=== PATIENT | male | born 1975 | race African-American/Black ===

== ENCOUNTER 2019-03-18 18:21 | Inpatient (IN) ==
[2019-03-18 18:49] LABS: BASO# 0.01 X1000 (0.0-0.2); BASO% 0.2 % (0.0-0.8); HEMATOCRIT 49.8 % (42.0-52.0); LYMPH# 1.01 X1000 (1.2-3.4); LYMPH% 16.3 % (20.5-51.1); MCH 34.1 PG (27-31); MCHC 34.1 g/dL (33-37); MONO# 0.49 X1000 (0.11-0.59); MONO% 7.9 % (1.7-9.3); NEUT# 4.68 X1000 (1.4-6.5); NEUT% 75.6 % (42.2-75.2); PLT 180 X1000 (130-400); RBC 4.98 XMIL (4.7-6.1); RDW 11.9 % (11.5-14.5); WBC 6.19 X1000 (4.8-10.8)
[2019-03-18 18:53] LABS: URINE SOURCE CLEAN CATCH
[2019-03-18 18:57] LABS: UR EPITHELIAL CELLS <10 /HPF (<10); URINE BACTERIA NEGATIVE /HPF; URINE RBC <10 /HPF (<10); URINE WBC <10 /HPF (<10)
[2019-03-18 18:58] LABS: BILIRUBIN URINE NEGATIVE (NEGATIVE); BLOOD URINE TRACE (NEGATIVE); COLOR YELLOW; GLUCOSE URINE NEGATIVE (NEGATIVE); KETONE URINE 80 mg/dL (NEGATIVE); LEUKOCYTES URINE NEGATIVE (NEGATIVE); NITRITE URINE NEGATIVE (NEGATIVE); PH URINE 7.5; PROTEIN URINE 600 mg/dL (NEGATIVE); SP GRAVITY URINE 1.022; TURBIDITY URINE CLEAR (CLEAR); UROBILINOGEN URINE 8 mg/dL (NORMAL)
[2019-03-18 19:10] LABS: AGAP 15; ALB/GLOB RATIO 1.5; ALBUMIN 4.5 g/dL (3.5-5.0); ALKALINE PHOSPHATASE 96 U/L (32-122); BUN 6 mg/dL (8-22); CALCIUM 9.9 mg/dL (8.8-10.2); CHLORIDE 94 mmol/L (98-107); COSMO 271; CREATININE 0.9 mg/dL (0.7-1.2); ESTIMATED GFR > 60; GLUCOSE 118 mg/dL (70-104); GOT 47 U/L (10-34); GPT 47 U/L (10-44); LIPASE 561 U/L (13-60); POTASSIUM 4.1 mmol/L (3.5-5.1); SODIUM 136 mmol/L (136-145); TCO2 27 mmol/L (25-35); TOTAL BILIRUBIN 1.64 mg/dL (0.20-1.00); TOTAL PROTEIN 7.5 g/dL (6.3-8.3)
--- NOTE | 2019-03-18 21:08 | PROVIDER DOCUMENTATION ---
HPI-General Adult - General Chief Complaint: Abdominal Pain Stated Complaint: ABDOMINAL PAIN, NAUSEA, HIGH BP Time Seen by Provider: 03/18/19 20:53 Source: patient Allergies/Adverse Reactions: Patient Allergies Allergy/AdvReac Type Severity Reaction Status Date / Time shellfish derived AdvReac Unknown Verified 03/18/19 21:50 Home Medications: Home Medication List Medication Instructions Recorded Confirmed Last Taken Type NK [No Home Medications] 03/18/19 03/18/19 Unknown History - History of Present Illness -Gen Adult Nature of Presenting Problems: 43yo male presents with CC of abdominal pain. The patient reports that the onset was this morning. The pain is sharp and stabbing and radiates to the back. The patient has had vomiting and reports fever and chills. The patient reports decreased PO intake. The patient reports only occasional alcohol use and no hx of gallbladder disease. Location of Pain/Injury: reports: abdomen Pain Radiation: reports: back Quality of Pain: reports: sharp, stabbing Severity: reports: moderate Onset/Duration: reports: this morning Timing: reports: still present Context/Activities at Onset: reports: none Associated Symptoms: reports: back/neck pain, constipation, fever/chills, vomiting. denies: genitourinary problems, shortness of breath Review of Systems - Adult - REVIEW OF SYSTEMS - ADULT Constitutional: reports: chills, fever Eyes: reports: no symptoms reported. denies: eye pain Ears, Nose, Mouth & Throat: reports: no symptoms reported. denies: throat pain Cardiovascular: reports: no symptoms reported. denies: chest pain Respiratory: reports: no symptoms reported, shortness of breath Gastrointestinal: reports: abdominal pain, vomiting Genitourinary: reports: no symptoms reported. denies: dysuria Musculoskeletal: reports: back pain Integumentary: reports: no symptoms reported Neurological: reports: no symptoms reported. denies: headache/migraines Psychiatric: reports: no symptoms reported. denies: alcohol/drug dependence Endocrine: reports: no symptoms reported Hematologic/Lymphatic: reports: no symptoms reported, other (no bleeding) Allergic/Immunologic: reports: no symptoms reported Past History - Adult - PAST MEDICAL HISTORY-ADULT Review of Records: reports: Old Records Reviewed Major Childhood Illnesses: reports: denies history Cardiovascular: reports: HTN Respiratory: reports: denies history Gastrointestinal: reports: denies history Genitourinary: reports: STD (male) (previous GC) Musculoskeletal: reports: denies history Neurological: reports: denies history Psychiatric: reports: denies history Endocrine/Immune: reports: denies history - PRIOR SURGERIES/PROCEDURES Surgical/Procedure History: reports: appendectomy - IMMUNIZATION STATUS Childhood Immunizations: See Nurse Assessment Flu Vaccine: See Nurse Assessment - FAMILY HISTORY Family History: reviewed, not pertinent Physical Exam-General - CONSTITUTIONAL General Appearance: appears well, alert, no apparent distress - EYES Eyes: negative: conjuctival exudate, photophobia, scleral icterus - HEAD, EARS, NOSE, MOUTH & THROAT HENMT: normocephalic/atraumatic, moist mucous membranes, pharynx normal. negative: hearing deficit, pharyngeal erythema - RESPIRATORY Respiratory: no respiratory distress - CARDIOVASCULAR Cardiovascular: no edema - GASTROINTESTINAL (ABDOMEN) Abdominal Exam: soft, tenderness (epigastric tenderness). negative: guarding, rigid - MUSCULOSKELETAL Back Exam: CVA tenderness (Left mild) Extremity: non-tender, normal inspection - SKIN Integumentary: normal color, warm/dry - NEUROLOGIC Neurologic: grossly normal - PSYCHIATRIC Psych/Mental Status: normal mood/affect, normal thought content, normal thought process Progress - PLAN OF CARE/RESULTS Progress/Plan/Lab Results: Vital Signs - 8 hr 03/18/19 18:30 Temperature 98.7 F Pulse Rate 64 Respiratory Rate 19 Blood Pressure 203/120 O2 Sat by Pulse Oximetry 100 Laboratory Results - last 24 hr 03/18/19 03/18/19 03/18/19 18:37 18:37 18:39 WBC 6.19 RBC 4.98 Hgb 17.0 Hct 49.8 MCV 100.0 H MCH 34.1 H MCHC 34.1 RDW Std Deviation 11.9 Plt Count 180 MPV 10.0 Immature Gran % (Auto) 0.0 Neut % (Auto) 75.6 H Lymph % (Auto) 16.3 L [place] % (Auto) 7.9 Eos % (Auto) 0.0 Baso % (Auto) 0.2 Immature Gran # (Auto) 0.00 Neut # (Auto) 4.68 Lymph # (Auto) 1.01 L [place] # (Auto) 0.49 Eos # (Auto) 0.00 Baso # (Auto) 0.01 Sodium 136 Potassium 4.1 Chloride 94 L Carbon Dioxide 27 Anion Gap 15 BUN 6 L Creatinine 0.9 Estimated GFR/1.73 m2 > 60 BUN/Creatinine Ratio 7 Glucose 118 H Calculated Osmolality 271 Calcium 9.9 Total Bilirubin 1.64 H AST 47 H ALT 47 H Alkaline Phosphatase 96 Total Protein 7.5 Albumin 4.5 Globulin 3.0 Albumin/Globulin Ratio 1.5 Lipase 561 H Urine Source CLEAN CATCH Urine Color YELLOW Urine Turbidity CLEAR Urine pH 7.5 Ur Specific [place] 1.022 Urine Protein 600 A Ur Glucose (Stick) NEGATIVE Ur Ketones (Stick) 80 A Urine Blood TRACE A Urine Nitrite NEGATIVE Urine Bilirubin NEGATIVE Urobilinogen Dipstick 8 A Urine Leukocytes NEGATIVE Urine WBC (Auto) <10 Urine RBC (Auto) <10 U Epithel Cells (Auto) <10 Urine Bacteria (Auto) NEGATIVE Orders Category Date Time Status NPO Diet 03/18/19 18:[address] ABD/PELVIS W/IV CONT ONLY [CT] Stat Exams 03/18/19 21:06 Ordered CBC WITH DIFF [HEME] Stat Lab 03/18/19 18:37 Completed COMPREHENSIVE METABOLIC PANEL [CHEM] Stat Lab 03/18/19 18:37 Completed LIPASE [CHEM] Stat Lab 03/18/19 18:37 Completed URINALYSIS [URINALYSIS] Stat Lab 03/18/19 18:39 Completed Abd Pain/OB <20 weeks Stat Oth 03/18/19 18:32 Ordered Result Diagrams: 03/18/19 18:37 03/18/19 18:37 - REASSESSMENT Reassessment #1 Status: improving (Acute pancreatitis noted on CT scan. Discussed with patient who is willing to admitted. Discussed with the hospitalist who has accepted the patient.) Departure - Departure Date of Disposition Decision: 03/19/19 Time of Disposition Decision: 00:55 DIAGNOSIS: Acute pancreatitis Qualifiers: Pancreatitis type: other Acute pancreatitis complication: no infection or necrosis Qualified Code(s): K85.80 - Other acute pancreatitis without necrosis or infection Disposition: ADMITTED INPATIENT 09 Certified Medical Emergency: Emergent Condition: Fair Referrals and Follow-Ups: Elier Bah MD [Primary Care Provider] - - Critical Care Note This patient required my direct & personal management of CC.: No Attestation - Physician/ IBAN Attestation Patient care was provided by Advanced Practice Provider:: No The physician spent face to face time with patient:: Yes Advanced Practice Provider documentation review:: Supervising physician onsite and consulted in the evaluation and care of this patient. The physician did have a face to face encounter with the patient.
[2019-03-18] MEDS ORDERED: MORPHINE IV ONE (22:40)
[2019-03-18] MEDS ORDERED: NS 1,000 ML IV ONE (22:40)
[2019-03-19] MEDS ORDERED: NS 1,000 ML IV ONE (00:45)
[2019-03-19] MEDS ORDERED: ZOFRAN IV PRN (03:57)
[2019-03-19] MEDS ORDERED: NS 1,000 ML IV SCH (03:57)
[2019-03-19] MEDS: ATIVAN IV PRN ×3 (04:02→15:00)
--- NOTE | 2019-03-19 04:52 | HISTORY AND PHYSICAL ---
CHIEF COMPLAINT: Abdominal pain. PRIMARY CARE PHYSICIAN: None. HISTORY OF PRESENTING ILLNESS: A 43-year-old male with a history of hypertension, who had presented to emergency department with several days history of having abdominal pain. The patient states it was cramping and was not feeling well. The patient also admit to being nauseated. The patient states that he only drinks alcohol occasionally. The patient had a CAT scan done which did show pancreatitis and due to his presenting symptoms, he will require admission for further management. During his initial stay in the ED, he also began to have possible withdrawal symptoms from alcohol. He began to seize, his seizure converted and he became somewhat postictal. Most of the history is obtained from previous records and the ER because patient could not provide any. PAST MEDICAL HISTORY: Hypertension. PAST SURGICAL HISTORY: None. ALLERGIES: No known drug allergies. CURRENT MEDICATIONS: None. SOCIAL HISTORY: Unknown. FAMILY HISTORY: Unknown. REVIEW OF SYSTEMS: Unable to obtain. PHYSICAL EXAMINATION: GENERAL: The patient is currently postictal, is moderately confused. VITAL SIGNS: Temperature 98.7 degrees, pulse 64, respiration 19, blood pressure 203/120. HEENT: Atraumatic, normocephalic. NECK: No masses. CHEST: Clear to auscultation. CARDIOVASCULAR: Regular rate and rhythm. ABDOMEN: Soft positive bowel sounds. EXTREMITIES: No edema. NEUROLOGIC: He is awake and arousable. GENITOURINARY: No bladder distention. SKIN: Warm. LABORATORIES AND STUDIES: Sodium 136, potassium 4.1, chloride 94, CO2 is 27, BUN is 6, creatinine 0.9. Glucose is 118, lipase is 561. WBC 6.19, hemoglobin 17.1, hematocrit 49.8, platelets 180,000. ASSESSMENT: A 43-year-old male with a history of hypertension, who had presented to the emergency department initially complaining of abdominal pain. He was evaluated the ED. He was found to have pancreatitis. During his stay in the ED he developed seizure-like activity, possibly had alcohol withdrawal. He will need admission for further management. 1. Acute pancreatitis. 2. Suspected alcohol withdrawal. 3. Seizure-like activity. 4. Hypertension, uncontrolled. PLAN: 1. We will admit patient to [facility]. 2. We will keep patient NPO. Give him pain control, antiemetics as needed. 3. Put patient on seizure precautions and use Ativan p.r.n. alcohol withdrawal symptoms. 4. We will monitor blood pressure closely and resume antihypertensive agent. 5. We will put patient on DVT prophylaxis with SCDs. 6. We will continue to follow and reassess. Make further recommendation based on patient's clinical course. cc: Iggy Duckworth MD
[2019-03-19] MEDS: MORPHINE IV PRN ×2 (06:56→09:19)
[2019-03-19] MEDS: APRESOLINE IV PRN ×3 (08:11→20:29)
--- NOTE | 2019-03-19 08:25 | Diag Imaging Result Doc PS360 ---
EXAM: CT ABDOMEN/PELVIS W/O CONTRAST 03/18/2019 HISTORY: abdominal pain TECHNIQUE: This exam was performed using automated exposure control, adjustment of mA or kV according to patient size, and/or use of iterative reconstruction technique. COMMENT: There are multiple subcentimeter nodules present in the lung bases notably on image one in the left lower lobe and in the lingula on the first image, on image two in the right lower lobe where there are two apparent nodules. On image four in the right middle lobe anterolaterally and on image 10 in the right lower lobe posterior laterally. There is a nodule near the major fissure on image 11 on the right and on image 26 in the posterior lateral right lower lobe. This was present at the time of the previous study of 01/19/2015, although the other nodules were not included on the previous exam. None of these are clearly calcified. There are calcified granulomata present in the spleen. There is no evidence of cholelithiasis. The gallbladder is not thickened or distended in appearance. There is edema surrounding the pancreas consistent with pancreatitis. This was not the case at the time the previous study. The possibility of necrosis cannot be excluded on the basis of this noncontrast study. There is no evidence of nephrolithiasis or hydronephrosis. There are multiple enlarged mesenteric nodes one of which on image 96 measures almost 2.2 cm in long axis. This was also present at the time the previous study. There is some hyperdense material in the distal small bowel although there is no history of the patient receiving oral contrast. There has apparently been an anastomosis in the ileum since the previous study. There has been previous appendectomy. There is diverticulosis in the left colon without evidence of acute diverticulitis. The urinary bladder is not distended. There is evidence of previous fracture of the inferior pubic ramus on the right. No evidence of acute bony disease is present. IMPRESSION: Acute pancreatitis. No definite evidence of abscess or focal abnormal fluid collection is present. The possibility of necrosis cannot be excluded due to the lack of intravenous contrast. Mesenteric adenopathy which is apparently chronic. Other nonacute findings as described above. Electronically signed by Raghu Pinedo 03/19/2019 8:23 AM
[2019-03-19] MEDS ORDERED: VASOTEC IV ONE (10:13)
[2019-03-19] MEDS ORDERED: THIAMINE 500 MG in NS 50 ML IV ONE (12:00)
[2019-03-19] MEDS: LR 1,000 ML IV SCH ×2 (12:56→23:46)
[2019-03-19 12:58] LABS: BASO# 0.01 X1000 (0.0-0.2); BASO% 0.1 % (0.0-0.8); EOS# 0.01 X1000 (0.0-0.7); EOS% 0.1 % (0.0-10.0); HEMOGLOBIN 17.6 g/dL (14.0-18.0); IMM GRAN# 0.03 X1000 (0.0-0.04); IMM GRAN% 0.3 % (0.0-0.5); LYMPH# 0.64 X1000 (1.2-3.4); LYMPH% 5.8 % (20.5-51.1); MCH 34.5 PG (27-31); MCHC 34.5 g/dL (33-37); MONO# 0.69 X1000 (0.11-0.59); MONO% 6.2 % (1.7-9.3); MPV 10.2 FL (7.4-10.4); NEUT# 9.71 X1000 (1.4-6.5); NEUT% 87.5 % (42.2-75.2); PLT 118 X1000 (130-400); WBC 11.09 X1000 (4.8-10.8)
[2019-03-19 13:02] LABS: BANDS 4 % (0-1); LYMPHS 4 % (21-51); SEGS 90 % (42-75)
[2019-03-19 13:08] LABS: AGAP 18; ALB/GLOB RATIO 1.4; ALBUMIN 3.9 g/dL (3.5-5.0); ALKALINE PHOSPHATASE 82 U/L (32-122); BUN 6 mg/dL (8-22); CALCIUM 8.6 mg/dL (8.8-10.2); CHLORIDE 96 mmol/L (98-107); COSMO 266; CREATININE 1.1 mg/dL (0.7-1.2); ESTIMATED GFR > 60; GLUCOSE 142 mg/dL (70-104); GOT 26 U/L (10-34); GPT 33 U/L (10-44); POTASSIUM 3.8 mmol/L (3.5-5.1); SODIUM 133 mmol/L (136-145); TCO2 19 mmol/L (25-35); TOTAL BILIRUBIN 1.22 mg/dL (0.20-1.00); TOTAL PROTEIN 6.7 g/dL (6.3-8.3)
--- NOTE | 2019-03-19 13:42 | Diag Imaging Result Doc PS360 ---
EXAM: CT HEAD W/O CONTRAST 03/19/2019 HISTORY: GTCSeizures. Rule out acute intracranial pathology TECHNIQUE: This exam was performed using automated exposure control, adjustment of mA or kV according to patient size, and/or use of iterative reconstruction technique. COMMENT: There is vasogenic edema in the parietal convexities bilaterally in multiple locations. The possibility of metastatic disease cannot be excluded and further evaluation with MRI and/or contrast enhanced CT is recommended. There are no previous studies available for comparison. IMPRESSION: The possibility of metastatic disease cannot be excluded. Electronically signed by Raghu Pinedo 03/19/2019 1:40 PM
[2019-03-19] MEDS ORDERED: VASOTEC IV PRN (14:00)
[2019-03-19 15:28] LABS: UR AMPHETAMINES QUAL NONE DETECTED (NONE DETECT); UR BARBITUATES QUAL NONE DETECTED (NONE DETECT); UR BENZODIAZEPIN QUAL NONE DETECTED (NONE DETECT); UR CANNABINOIDS QUAL NONE DETECTED (NONE DETECT); UR COCAINE QUAL NONE DETECTED (NONE DETECT); UR METHADONE QUAL NONE DETECTED (NONE DETECT); UR OPIATES QUAL PRESUMPTIVE POSITIVE (NONE DETECT); UR OXYCODONE QUAL NONE DETECTED (NONE DETECT); UR PCP QUAL NONE DETECTED (NONE DETECT)
[2019-03-19] MEDS: LOPRESSOR PO SCH ×2 (16:11→21:32)
--- NOTE | 2019-03-19 16:12 | Diag Imaging Result Doc PS360 ---
EXAM: CT HEAD W/CONTRAST 03/19/2019 HISTORY: Evaluate Vasogenic cerebral edema further TECHNIQUE: This exam was performed using automated exposure control, adjustment of mA or kV according to patient size, and/or use of iterative reconstruction technique. COMMENT: There is a mucous retention cyst in the left maxillary sinus. There is no significant abnormal contrast enhancement. Patchy areas of edema present in the parietal convexities and along the medial right hemisphere may be related to ischemia or cerebritis. Further evaluation with MRI is recommended. IMPRESSION: Nonspecific focal edema in the parietal lobes bilaterally. Advise further evaluation with MRI. Electronically signed by Raghu Pinedo 03/19/2019 4:09 PM
--- NOTE | 2019-03-19 16:57 | PROGRESS NOTE ---
DATE: 03/19/2019 INTERVAL HISTORY: Mr. Rosen was admitted for abdominal pain, vomiting, fever, chills, and decreased p.o. intake and he was found to have acute pancreatitis with inflamed pancreas and elevated lipase. He also developed an episode of tonic-clonic seizures in the emergency room. Overnight no other events. He continued to remain hypertensive. SUBJECTIVE: Mr. Rosen appears drowsy in the morning time, though he is arousable and is answering questions appropriately, though he lapses back into sleep again. He states that he drinks about 1 pint every day or every other day and his last drink was on March 16. He denies noticing any withdrawal symptoms if he would not drink. He denies being admitted for alcohol- related problems in the past. However, history is limited, considering his drowsiness and mental status. VITAL SIGNS: He has been afebrile with temperature of 98.1 degrees, pulse 88, respiratory rate 18, blood pressure is 190/110, saturating 95% on room air. PHYSICAL EXAMINATION: He is not in any acute distress. Oral cavity is moist.Lungs: Air entry bilaterally equal. No wheeze, rhonchi, crackles. Cardiovascular: S1, S2 normal. No murmur, rub, or gallop. Abdomen: Soft. He has epigastric tenderness. No rebound or rigidity. Active bowel sounds no lower extremity edema. He does not have any neck rigidity. He is able to follow commands and answers simple questions and examination is nonfocal in terms of sensory and motor. LABS: Suggestive of leukocytosis, elevated hemoglobin, thrombocytopenia. He does have hyponatremia, hypochloremia, decreasing bicarbonate, normal kidney function, hyperglycemia. Positive opiates. However, he has been on morphine. No positive microbiological data. IMAGING: I performed a head CT which has possibility of metastatic disease considering there is vasogenic edema in the parietal convexities bilaterally and multiple locations. ASSESSMENT AND PLAN: 1. Acute pancreatitis, which could be in the setting of alcohol use. I will change intravenous fluids to lactated Ringer's and increase the fluid rate. If he is awake enough to eat, I will start him on clear liquid diet. I will give him intravenous morphine as needed for abdominal pain. I will keep him on Zofran as needed for vomiting. He was counseled about alcohol cessation. He does not have signs of necrosis including high-grade fever or worsening nausea or vomiting at the moment. 2. Hypertensive urgency. I will start him on enalapril 8. His home medications are not known. He is not able to provide me any history. I will target blood pressure of less than 160 mmHg. 3. Alcohol use disorder. The details of his consumption are not clear at the moment. However, he states he drinks close to 1 pint every other day. I will start him on high-dose intravenous thiamine. 4. Acute encephalopathy. He does appear to have some drowsiness, so head CT was performed. He also had reported seizures in the emergency room and current status could also be to a degree of postictal status. Head CT unfortunately detected vasogenic edema. I will repeat another head CT with contrast to evaluate the vasogenic edema better. Based on that, I will start him on dexamethasone next. DISPOSITION: I will monitor patient inside the hospital. I tried to reach out to the patient's aunt, who patient states is his relative, to get more historical data. However, her number is not reachable. I discussed plan of care with nursing team. cc: Liang Spencer MD
--- NOTE | 2019-03-19 17:32 | EKG Report ---
Test Performed on : 03/19/2019 4:25:32 PM Test Reason : tachycardia Blood Pressure : / mmHG Vent. Rate : 128 BPM Atrial Rate : 128 BPM P-R Int : 140 ms QRS Dur : 090 ms QT Int : 324 ms P-R-T Axes : 047 034 038 degrees QTc Int : 473 ms Sinus tachycardia. Otherwise normal ECG No previous ECGs available Confirmed by Bjorn Huerta MD ([id number]) on 03/21/2019 9:28:39 AM
[2019-03-19] MEDS ORDERED: VANCOMYCIN IV PER PHARMACY MISC SCH (18:15)
[2019-03-19] MEDS: VASOTEC IV SCH ×2 (18:17→23:46)
[2019-03-19] MEDS: ROCEPHIN 2 GM in NS 50 ML IV SCH (20:29)
[2019-03-19] MEDS: THIAMINE 500 MG in NS 50 ML IV SCH (21:22)
[2019-03-19] MEDS: VANCOMYCIN 2 GM in NS 500 ML IV SCH (21:22)
[2019-03-20] MEDS: LOPRESSOR PO SCH ×4 (03:58→21:47)
[2019-03-20] MEDS: THIAMINE 500 MG in NS 50 ML IV SCH ×3 (05:25→21:47)
[2019-03-20] MEDS: VASOTEC IV SCH ×4 (05:25→17:42)
[2019-03-20 06:59] LABS: AGAP 14; BUN 8 mg/dL (8-22); CALCIUM 8.6 mg/dL (8.8-10.2); CHLORIDE 96 mmol/L (98-107); COSMO 264; ESTIMATED GFR > 60; GLUCOSE 125 mg/dL (70-104); MAGNESIUM 1.9 mg/dL (1.5-2.7); POTASSIUM 4.2 mmol/L (3.5-5.1); SODIUM 132 mmol/L (136-145); TCO2 22 mmol/L (25-35)
[2019-03-20 07:06] LABS: HEMATOCRIT 49.8 % (42.0-52.0); HEMOGLOBIN 16.9 g/dL (14.0-18.0); LYMPH# 0.67 X1000 (1.2-3.4); LYMPH% 6.5 % (20.5-51.1); MCH 34.3 PG (27-31); MCHC 33.9 g/dL (33-37); MCV 101.2 FL (81-99); MONO# 0.85 X1000 (0.11-0.59); MONO% 8.3 % (1.7-9.3); MPV 10.7 FL (7.4-10.4); NEUT# 8.77 X1000 (1.4-6.5); NEUT% 85.2 % (42.2-75.2); PLT 98 X1000 (130-400); RBC 4.92 XMIL (4.7-6.1); RDW 12.4 % (11.5-14.5); WBC 10.29 X1000 (4.8-10.8)
[2019-03-20] MEDS: ROCEPHIN 2 GM in NS 50 ML IV SCH ×2 (08:13→20:46)
[2019-03-20] MEDS: LR 1,000 ML IV SCH ×2 (08:19→16:46)
--- NOTE | 2019-03-20 09:45 | PROGRESS NOTE ---
DATE: 03/20/2019 INTERVAL HISTORY: No acute events overnight. SUBJECTIVE: Mr. Rosen is feeling better than yesterday. He is much more awake and alert. He states that he never had alcohol withdrawal issues. He states that he is not that heavy of a drinker and never had alcohol withdrawal. He is eating his diet well, and he has occasional nausea and vomiting. VITAL SIGNS: Temperature of 99.8 degrees, pulse 109, respiratory rate 27, blood pressure 140/90, saturating 93% on room air. PHYSICAL EXAMINATION: General: Not in acute distress. HEENT: Oral cavity is moist. Lungs: Air entry bilaterally equal. No wheeze, rhonchi, or crackles. Cardiovascular: S1, S2 normal. No murmur, rub, or gallop. Abdomen: Soft. Epigastric tenderness. Active bowel sounds. He has not had a bowel movement. Extremities: No lower extremity edema.Neuro: is moving all extremities spontaneously above ground level. Does not have neck rigidity. Pupils are bilaterally equal and reacting to light. His speech is normal and his mentation, though intermittently drowsy, appears intact. LABORATORY DATA: Suggestive of no leukocytosis. Normal hemoglobin. He does have thrombocytopenia. He has hyponatremia, hyperchloremia, normal kidney function. Acceptable range of blood glucose. He is alert and oriented x3. He does not have any neck stiffness. No neck rigidity. Negative Kernig and Brudzinski's sign. Microbiology: No data. IMAGING: Repeat head CT with contrast yesterday had nonspecific focal edema in the parietal lobes. An MRI was recommended, which I will order for tomorrow. ASSESSMENT AND PLAN: 1. Acute alcoholic pancreatitis. His last drink was 48 hours prior to presentation. Continue intravenous lactated Ringer's, intravenous thiamine and oral diet. I will give him intravenous Zofran as needed. He does not have signs of necrosis at the moment. He does not have clinical features of necrosis at the moment. 2. Seizure in ER. It could be alcohol withdrawal seizure. However, he denies any alcohol withdrawal symptoms in the past as such. Though admits to be drinking upto a pint a day [address] with contrast has parietal edema which could be secondary after seizure or a primary pathology. I will get MRI of brain and consult neurology. 2. Hypertensive urgency. He has history of hypertension but he was not taking any medication. I will continue him on enalapril and oral metoprolol. 3. Alcohol use disorder. He was counseled about stopping alcohol use, though he denies heavy drinking. However, mentions that he may drink about 3 or 4 days a week of about 1 pint, but he does not usually experience any withdrawals. I will keep him on intravenous thiamine and multivitamin. 4. Acute encephalopathy and suspected sepsis. His mental status has improved over last 24 hours. However, he continues to have low-grade fever, tachycardia. He does not have any focal abnormality. I will consider lumbar puncture depending on his course in the future to rule out encephalitis/meningitis. Head CT did have parietal edema which could be a primary finding or secondary to his. Plan of care discussed with the patient. His questions have been answered. cc: Liang Spencer MD MTDD
[2019-03-20 11:00] LABS: BANDS 6 % (0-1); LYMPHS 4 % (21-51); MONO 2 % (1-9); SEGS 88 % (42-75)
[2019-03-20 16:05] LABS: APPEARANCE CLEAR; WBC BF 27 /cumm
[2019-03-20 16:07] LABS: RBC BF 860 /cumm
[2019-03-20 16:39] LABS: MONOS 30 %; POLYS 70 %
[2019-03-20 16:49] LABS: GLUCOSE CSF 89 mg/dL (39-75); PROTEIN CSF 21.9 mg/dL (15-45)
[2019-03-20] MEDS ORDERED: LOVENOX SUBQ SCH (18:00)
--- NOTE | 2019-03-20 19:29 | OPERATIVE NOTE ---
PROCEDURE DATE: PROCEDURE: Lumbar puncture. INDICATION FOR THE PROCEDURE: Cerebrospinal fluid analysis to rule out meningitis, encephalitis. His CT scan head with contrast has cerebritis and inflammation around parietal lobe. He has been having intermittent drowsiness and not feeling well, as well as low-grade fever and tachycardia. CONSENT FOR THE PROCEDURE: I explained to him the indication for the procedure, steps of the procedure, alternatives to the procedure, advantages of the procedure, and complications of the procedure. I explained to him that the potential complication could be bleeding at the needle puncture site, introduction of infection, injury to the nose, and written informed consent was taken. He was allowed to ask questions and concerns related to the procedure and all of them were answered. The patient's family members at bedside were also explained about the procedure. ATTENDANTS DURING PROCEDURE: Two nurses attended the procedure. STEPS OF THE PROCEDURE: At the beginning of the procedure, a time-out was performed. The patient, procedure, and indications were identified. The patient was asked to lie in right lateral position with knees approximated as close to the chest as possible. Using the sterile precautions, initially using iliac crests as surface marking points the space between the 4th and 5th lumbar vertebra was marked with a marker. Then a lumbar puncture kit was opened and the area was cleaned with Betadine solution and then draped. Sterile gloves were worn during the procedure. The area was infiltrated with 1% lidocaine and about 2 to 3 minutes were allowed for lidocaine to take its effect. After lidocaine was injected, a spinal needle was inserted into the spinal space. Initially, no CSF could return and the patient experienced some tingling in the leg, so a spinal needle was withdrawn and another needle puncture was made. This time around, the passage of the spinal needle was smooth and subarachnoid space was reached. The cannula was withdrawn and clear subarachnoid space started pouring out. Four tubes where filled in with CSF. At the end of the procedure towards filling up the 4th tube, the CSF turned a little bloody. After the 4 tubes were filled in, a needle was reintroduced into the spinal needle and the needle was withdrawn. Some pressure was applied at the site for 5 minutes and a Band-Aid was applied. The patient tolerated the procedure well. At the end of procedure, the patient denies any headache, nausea, vomiting, tingling, numbness, or pain in the lower extremities. About 30 minutes of time was spent in performing the procedure. cc: Liang Spencer MD
[2019-03-20] MEDS: VANCOMYCIN 2 GM in NS 500 ML IV SCH (21:47)
[2019-03-21] MEDS: VASOTEC IV SCH ×4 (00:43→18:14)
[2019-03-21] MEDS: LOPRESSOR PO SCH ×4 (03:56→21:41)
[2019-03-21] MEDS: LR 1,000 ML IV SCH ×4 (05:44→21:41)
[2019-03-21] MEDS: THIAMINE 500 MG in NS 50 ML IV SCH ×2 (05:44→13:56)
[2019-03-21 07:18] LABS: AGAP 12; BUN 11 mg/dL (8-22); CALCIUM 8.3 mg/dL (8.8-10.2); CHLORIDE 97 mmol/L (98-107); COSMO 268; ESTIMATED GFR > 60; GLUCOSE 112 mg/dL (70-104); POTASSIUM 3.7 mmol/L (3.5-5.1); SODIUM 134 mmol/L (136-145); TCO2 25 mmol/L (25-35)
[2019-03-21] MEDS: ROCEPHIN 2 GM in NS 50 ML IV SCH ×2 (08:22→21:04)
--- NOTE | 2019-03-21 11:51 | Diag Imaging Result Doc PS360 ---
EXAM: MRI BRAIN W/WO CONTRAST INDICATION: Evaluate parietal edema further COMPARISON: CT head dated 03/19/2019. No prior MRI brain is available for comparison. FINDINGS: There is no evidence of acute infarct. There is bilateral focal subcortical and cortical T2/FLAIR signal hyperintensity in the posterior parietal lobe indicating vasogenic edema. This was also seen on the previous CT. In addition to this, there is milder subcortical edema associated with both occipital lobes, more prominent on the left. This was occult on the previous CT. There is no restricted diffusion associated with these regions and there is no enhancement. The pattern and distribution is most suggestive of posterior reversible encephalopathy syndrome (PRES), especially if there has been a recent episode of malignant hypertension. No intracranial mass or gross intracranial hemorrhage is appreciated. No abnormal intracranial enhancement is appreciated. There are bilateral maxillary and left sphenoid sinus mucus retention cyst. Surrounding soft tissues and bony structures are essentially unremarkable, otherwise. IMPRESSION: Focal cortical and subcortical edema bilaterally involving the parietal lobe and, to a lesser degree, the occipital lobes in a pattern suggestive of posterior reversible encephalopathy syndrome. Please correlate clinically. Electronically signed by Neftaly Herring 03/21/2019 11:48 AM
--- NOTE | 2019-03-21 16:32 | PROGRESS NOTE ---
DATE: 03/21/2019 SUBJECTIVE: This morning, Mr. Rosen refers to be doing well. Denies any new complaints. Has not had any more seizures. He said he has been tolerating his clear liquid diet. OBJECTIVE: Vital signs: Blood pressure is 129/82, pulse of 78, respirations 24, temperature is 98 degrees. General: Mr. Rosen is a 43-year-old gentleman. He is in bed. No distress. HEENT: Mucosa is pink and moist. Anicteric. Acyanotic. Neck: Supple. Chest: Clear to auscultation. No crepitations. No rhonchi. Cardiovascular: Regular rate and rhythm. No murmurs, no rubs, no gallops Gastrointestinal: Abdomen soft, nontender. Bowel sounds present. There is an old right-sided para umbilical surgical scar. Extremities: No pedal edema. 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 There is no focal deficit. LABORATORY DATA: CBC is reviewed, completely unremarkable. Chemistry is also reviewed unremarkable. IMAGING STUDIES: Including a CT scan of the abdomen and pelvic on admission did show an acute pancreatitis. An MRI of the brain this morning shows focal cortical and subcortical edema bilaterally involving the parietal lobe and to a lesser degree the occipital lobes and the pattern is suggestive of posterior reversible encephalopathy. syndrome. The patient presented with a blood pressure of 203/102. ASSESSMENT: 1. Acute pancreatitis, etiology seems to be alcohol. So far, CT scan does not show any stones. We will get a limited upper quadrant ultrasound. We will also get lipids level to rule out elevated triglyceridemia. 2. Severe hypertension on admission. Improved. 3. Posterior reversible encephalopathy syndrome noted on MRI. 4. Alcohol use and abuse with suspicion of alcohol withdrawal seizures. PLAN: In general, I think Mr. Rosen is doing well. He presented because of abdominal pain which was found to be acute pancreatitis. Unfortunately, I understand during the ER stay he had 2 episodes of seizures. Of note, his blood pressures were extremely high. I am unsure if this was hypertensive encephalopathy. However, Mr. Rosen also binges alcohol on a daily basis and we think that his acute pancreatitis is related to alcohol and unsure if the seizure was as a result of alcohol withdrawal or is a combination of alcohol withdrawal and hypertensive encephalopathy. In either case, blood pressures are a lot better now. He is tolerating his full liquid diet. We will advance this and see if he is able to tolerate. MRI of the brain shows PRES We will get an EEG to rule out any underlying epilepsy. Mr. Rosen is also pending Neurology evaluation today. cc: Enrique Marsh MD MTDD
--- NOTE | 2019-03-21 16:53 | Diag Imaging Result Doc PS360 ---
EXAM: US GB < RUQ (LIMITED) INDICATION: acute pancreatitis COMPARISON: None. FINDINGS: The gallbladder appears normal with no stones, wall thickening, or pericholecystic fluid. The common bile duct is normal in diameter. Sonographic Pastor's sign was reported to be negative. The liver is grossly unremarkable. Portal venous flow is hepatopetal. The pancreas is largely obscured. No peripancreatic fluid collections are appreciated, however. The visualized portion of the aorta and IVC are grossly unremarkable. The right kidney is grossly unremarkable. IMPRESSION: Essentially unremarkable right upper quadrant abdominal ultrasound. However, the pancreas is largely obscured. Electronically signed by Neftaly Herring 03/21/2019 4:51 PM
[2019-03-21] MEDS: VANCOMYCIN 2 GM in NS 500 ML IV SCH (21:41)
[2019-03-22] MEDS: KEPPRA PO SCH ×3 (00:01→20:11)
[2019-03-22] MEDS: LR 1,000 ML IV SCH ×3 (01:43→16:35)
[2019-03-22] MEDS: VASOTEC IV SCH ×3 (01:46→11:16)
[2019-03-22] MEDS: LOPRESSOR PO SCH ×3 (04:29→16:45)
[2019-03-22 06:37] LABS: C REACTIVE PROT QUANT 134.58 mg/L (0.00-5.00); CHOLESTEROL 84 mg/dL (0-200); HDL 23 mg/dL (35-55); LDL 42 mg/dL; TRIGLYCERIDES 97 mg/dL (39-160); VLDL 19 mg/dL
[2019-03-22 06:48] LABS: HEMOGLOBIN A1C 4.7 % (4.8-6.0)
[2019-03-22 07:04] LABS: AGAP 10; BUN 10 mg/dL (8-22); CALCIUM 8.3 mg/dL (8.8-10.2); CHLORIDE 100 mmol/L (98-107); COSMO 274; CREATININE 1.1 mg/dL (0.7-1.2); ESTIMATED GFR > 60; GLUCOSE 121 mg/dL (70-104); POTASSIUM 3.4 mmol/L (3.5-5.1); SODIUM 137 mmol/L (136-145); TCO2 27 mmol/L (25-35)
[2019-03-22 07:08] LABS: BASO# 0.01 X1000 (0.0-0.2); BASO% 0.1 % (0.0-0.8); EOS# 0.02 X1000 (0.0-0.7); EOS% 0.3 % (0.0-10.0); HEMATOCRIT 42.2 % (42.0-52.0); HEMOGLOBIN 14.1 g/dL (14.0-18.0); IMM GRAN# 0.02 X1000 (0.0-0.04); IMM GRAN% 0.3 % (0.0-0.5); LYMPH# 1.21 X1000 (1.2-3.4); LYMPH% 17.1 % (20.5-51.1); MCH 34.4 PG (27-31); MCHC 33.4 g/dL (33-37); MCV 102.9 FL (81-99); MONO# 0.62 X1000 (0.11-0.59); MONO% 8.8 % (1.7-9.3); MPV 10.8 FL (7.4-10.4); NEUT# 5.19 X1000 (1.4-6.5); NEUT% 73.4 % (42.2-75.2); PLT 112 X1000 (130-400); RDW 11.7 % (11.5-14.5); WBC 7.07 X1000 (4.8-10.8)
--- NOTE | 2019-03-22 08:01 | CONSULTATION ---
DATE OF CONSULTATION: 03/21/2019 REASON FOR CONSULTATION: Question of cerebritis. HISTORY: This is a 43-year-old right-handed male with a history of hypertension who was admitted on 03/19/2019 after presenting with the initial complaints of abdominal pain throughout the day. He was nauseated. While in the emergency department, apparently, he had two witnessed seizures and was postictal. Subsequently, he bit his tongue. It is documented that his eyes rolled back, arms were straight, and he was shaking all over. Duration 1 minute. The initial head CT showed concern for vasogenic edema in the parietal convexities bilaterally, and the possibility of metastatic disease could not be excluded. A repeat head CT at this time with contrast showed that the edema was nonspecific. MRI performed yesterday showed a pattern that was suggestive of posterior reversible encephalopathy syndrome with cortical and subcortical edema bilaterally in the parietal lobes and to a lesser extent the occipital lobes. Of note, the patient presented with blood pressure of 203/120. Subsequent recordings were as high as 227/148. He reports that he drinks about 1 pint of liquor a day although he quit on . He has not had anything since that time. He denies ever having any type of alcohol withdrawal symptoms including seizures. For workup of his abdominal pain, CT of the abdomen and pelvis showed acute pancreatitis, and that is being managed. There has not been a recurrent seizure. His mother at the bedside says that he was initially confused in the hospital, but that has improved and actually resolved now. He denied visual symptoms. He denies history of major neurologic event. PAST MEDICAL HISTORY: Includes hypertension. FAMILY HISTORY: Noncontributory. SOCIAL HISTORY: He was drinking 1 pint of liquor daily up until when he quit. No illicit's. No tobacco. ALLERGIES: Listed to shellfish. MEDICATIONS: Current medications at home none. Current medications reviewed in the chart. REVIEW OF SYSTEMS: Balance of 12 conducted, and otherwise negative except that detailed in the HPI. PHYSICAL EXAMINATION: Vital Signs: Blood pressure as per above. He has had fever intermittently. Current afebrile. Pulse 75. General: Mr. Rosen is supine in bed with head of bed elevated. He is awake, alert and oriented. His speech is fluent. He is appropriate and reasonably attentive. He follows simple commands consistently. Left right digit distinction. No language disturbance detected on brief bedside testing. Pupils equal, round, and reactive to light. Gaze is conjugate. Ocular movements are full. Visual ceron appear to be intact to direct confrontational testing. Face symmetric with equal activation. Facial sensation reported intact. Tongue is midline. Palate elevates symmetrically. Tone is equal on the limbs. Power is preserved and symmetric in the limbs. Reflexes are 1 to 2+ at the wrist, 2+ at the biceps, and 1+ at the ankles. No clonus. Plantar response is downgoing. DIAGNOSTICS/IMAGING: As per above, personally reviewed MRI. LABORATORY: White count is currently normal. Sodium of 134. BUN and creatinine are normal. Blood sugar 112-177. AST was 47 and ALT also 47. CSF meningitis encephalitis panel was negative. Gram stain and culture rare and negative. ASSESSMENT AND PLAN: A 43-year-old male admitted with pancreatitis and 2 seizure events witnessed in the emergency department. He was significantly hypertensive, and had some confusion as well. I suspect posterior reversible encephalopathy syndrome. It is possible to see CSF pleocytosis associated with PRES, but cannot exclude infectious etiology given the accompanying fever. An ID opinion would likely be helpful. Agree with blood pressure reduction in the setting of PRES concern and I see it has improved since admission. Would closely monitor and treat his blood pressure. Will start antiepileptic medication for the short term, have him follow up in the neurology clinic with plan to taper off. He will also need repeat MRI in 2-4 weeks to look for resolution of the current findings. Seizure precautions. I believe an EEG has been ordered, and we will review that. Thank you for this consultation. cc: Lucrecia Anna MD [facility]
[2019-03-22] MEDS: ROCEPHIN 2 GM in NS 50 ML IV SCH ×2 (08:05→20:11)
--- NOTE | 2019-03-22 18:46 | EEG REPORT ---
DATE: 03/21/2019 DATE OF SERVICE: 03/22/2019 REFERRING PHYSICIAN: Dr. Marsh MECHANICAL SHOVEL OPERATOR: Pamela Higginbotham. BACKGROUND INFORMATION TECHNIQUE: This is a digitally recorded routine EEG with video. HISTORY: A 43-year-old male patient admitted with pancreatitis. While in the emergency department, he also had 2 seizure like events followed by postictal state. EEG is ordered to detect evidence of seizures. MEDICATIONS: Include lorazepam and morphine p.r.n. and Keppra. EEG FINDINGS: A well-formed 10 to 10.5 Hz posterior dominant alpha rhythm is seen symmetrically in the occipital regions and attenuates with eye opening. The anterior background at maximal alertness consists of mixed alpha and beta range frequencies. No definite persistent focal slowing. No epileptiform discharges. No seizures. Hyperventilation induces mild diffuse physiologic slowing. Photic stimulation induces a normal driving response. The patient becomes drowsy and enters into stage II sleep. The EKG demonstrates regular RR intervals. IMPRESSION AND CLINICAL CORRELATION: Normal routine EEG in the awake, drowsy, and sleep states. Of note, a normal EEG does not rule out epilepsy. Clinical correlation is recommended. cc: MD Enrique Contreras MD
--- NOTE | 2019-03-22 18:57 | PROGRESS NOTE ---
DATE: 03/22/2019 SUBJECTIVE/OBJECTIVE: No major overnight events. He is currently afebrile. Blood pressure has been variable, most recent 160/102, has been down to 126/77. Mr. Rosen is sitting up in bed, awake and alert. He is oriented. He is conversational and appropriate. He is seen to move his extremities equally without obvious focal deficits. DIAGNOSTIC DATA: Labs today reviewed in the chart. Routine EEG was personally reviewed and was normal. ASSESSMENT AND PLAN: He has clinical history and imaging findings that would be consistent with posterior reversible encephalopathy syndrome. I appreciate ID's input. His blood pressure has been variable, and I would recommend to closely monitor and control his blood pressure in the setting of posterior reversible encephalopathy syndrome. I started levetiracetam low dose and we can continue that for the short term. He will again need a repeat MRI in about 4 weeks to look for resolution of the current findings. Seizure precautions were advised and discussed with the patient. He also understands he should not be operating heavy machinery or driving at this time. cc: Lucrecia Anna MD
--- NOTE | 2019-03-22 19:38 | INFECTIOUS DISEASE CONSULT REP ---
DATE: 03/22/2019 CONCLUSION: Dr. Anna of the Neurology Division asked that I be consulted about the patient, because he apparently in the emergency room had seizures and also on his spinal tap there were 27 white blood cells of which 70% were polymorphic nuclear. CSF glucose and protein were normal and the meningitis/encephalitis panel was negative. I doubt that the patient's seizure activity and the abnormal cerebral spinal fluid is on the basis of a central nervous system infection. The patient appears to have pancreatitis, and I am uncertain if that could be causing the patient to have seizures. Also, he drinks alcoholic beverages heavily, and that could have also have something to do with the patient's seizures and abnormal white blood cell count. I think the patient in the emergency room did get morphine, and this could have caused him to have some shaking things and be mistaken for a seizure. RECOMMENDATIONS: Because I doubt that the patient has a central nervous system infection, I do not think any antimicrobial therapy is necessary. The patient is on vancomycin and Rocephin to treat his pancreatitis. DISCUSSION: The patient tells me that approximately 5 days ago he was having very severe abdominal pain. He came to the emergency room, and there he passed out. He was told when he woke up that he had 1 or 2 seizures. I checked with the pharmacy and while the patient was in the emergency room, he received morphine and Ativan. The morphine could have given the patient some shaking activity and maybe that was thought to be a seizure. The Ativan probably was given because of the feeling that the patient had a seizure also. The patient's lab studies. CBC shows a white blood cell count of 7070, hemoglobin 14.1, and platelet count 112,000. Creatinine is 1.1. GFR is greater than 60. AST and ALT are 47. Lipase is 561. PAST MEDICAL HISTORY/REVIEW OF SYSTEMS: Eyes and Ears: Hearing and vision are good. Neck: No stiffness. Respiratory: No cough or shortness of breath. Cardiac: No chest pain or palpitations. GI: No nausea, vomiting, or diarrhea. : No dysuria or flank pain. Neurologic: See present illness. I think it is possible that the patient's reaction to morphine could have been mistaken for a seizure. I think it is definitely positive that the patient's apparent seizure-like activity is secondary to his heavy alcohol consumption PREVIOUS HOSPITALIZATIONS AND OPERATIONS: Patient has had an appendectomy. MEDICAL DISEASES: Positive for hypertension. INFECTIOUS DISEASE HISTORY: Negative for pneumonia and UTI. The patient told me that for his job he had to have a TB skin test. He did, and it was negative. He also told me that he does have sexual relations with a single woman. In December of 2018, he had a test for HIV, and he was told it was negative. FAMILY HISTORY: Positive for hypertension, cancer, and asthma. SOCIAL HISTORY: [place] He is single. He lives alone. He smokes cigarettes and drinks alcoholic beverages but denies abusing drugs. 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 The patient has no allergies and no medications. PHYSICAL EXAMINATION: Vital Signs: Temperature is 98.4 degrees, pulse 92, respirations 14, blood pressure 145/93. General: This is an obese, middle-aged male. He is in acute distress. Head/eyes/ears/nose/throat: He can hear my spoken words and see near objects. He does not have any white coating on his tongue. Neck: No meningismus. Lungs: Clear to auscultation. Cardiovascular: Regular heart rate. Abdomen: Soft and nontender. Neurologic: The patient is alert. He can move his extremities. He is coherent. There is no tremor. His memory as regarding his medical history appears intact. I am signing off of the patient's case. Thank you for the consultation. cc: Cam Syed MD [facility]
--- NOTE | 2019-03-22 19:50 | PROGRESS NOTE ---
DATE: 03/22/2019 SUBJECTIVE: This morning Mr. Rosen refers to be doing well. Has not had any more seizures during the hospital course. Has been evaluated by Neurology yesterday and they did recommend the patient to be seen by ID because of abnormal CSF results. OBJECTIVELY: Current Vitals: Blood pressure is 178/100, pulse of 75, respirations 15, temperature is 98.4 degrees. General: Mr. Rosen is a 43-year-old gentleman. He was in bed, no distress. Mucosa is pink and moist. Anicteric. Acyanotic. Neck: Supple. Chest: Clear to auscultation. No crepitations. No rhonchi. Cardiovascular: Regular rate and rhythm. GI: Abdomen was soft, was nontender. Bowel sounds present. There is an old right paraumbilical surgical scar from previous surgery. Extremities: No pedal edema. 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 No focal deficit. The patient's I's and O's, urine output was 1450, is currently positive balance of 3140. MEDICATIONS: Have all been reviewed and no changes. So far blood cultures have been 48 hours negative. ASSESSMENT: 1. Acute alcohol-induced pancreatitis. The patient seems to have improved. He is currently tolerating a regular diet. 2. Severe hypertension on admission. Mr. Rosen refers that he used to be hypertensive on medications. However, he discontinued his blood pressure medicine couple years ago because it has been normal. His blood pressures have been fairly elevated during the hospital course and I think he is going to be needing to be on a BP medication. We will start him on a low- dose amlodipine to see if that helps. 3. Some posterior reversible encephalopathy syndrome noted on MRI. Neurology has been consulted. So far the CSF fluid analysis is more suggestive of a mildly traumatic injury. The meningitis and meningitis/encephalitis panel of the CSF is completely negative. However, neurology has recommended ID to be consulted. I have consulted ID today. 4. Alcohol use and abuse with suspicion of alcohol withdrawal seizures. 5. Seizures on admission. Etiology is not 100% clear. We theorized that this could be potentially related to alcohol withdrawal. However, hypertensive encephalopathy and PRES could potentially cause this. An EEG has been done and we are waiting on the results. cc: MD HEAVENLY Rojas
[2019-03-22] MEDS: NORVASC PO SCH (20:11)
[2019-03-22] MEDS: COREG PO SCH (20:11)
[2019-03-22] MEDS: VANCOMYCIN 2 GM in NS 500 ML IV SCH (20:43)
[2019-03-23 08:00] VITALS: BP 156/95
[2019-03-23] MEDS: KEPPRA PO SCH (09:05)
[2019-03-23] MEDS: COREG PO SCH (09:05)
[2019-03-23] MEDS: NORVASC PO SCH (09:05)
[2019-03-23] MEDS: ATIVAN IV PRN (09:08)
--- NOTE | 2019-03-24 15:07 | DISCHARGE SUMMARY ---
ADMISSION DATE: 03/19/2019 DISCHARGE DATE: 03/23/2019 DISPOSITION: Home. FOLLOW-UP: 1. Dr. Anna. 2. Dr. Syed. 3. Dr. Elier Bah. CONSULTATIONS DURING THIS ADMISSION: 1. Neurology was consulted. Patient was seen by Dr. Anna. 2. Infectious Disease consulted. Patient was seen by Dr. Syed. INVASIVE PROCEDURES DONE DURING THIS ADMISSION: A lumbar puncture was done by Dr. Spencer. IMAGING STUDIES OF SIGNIFICANCE: 1. CT scan of the abdomen showed an acute pancreatitis. 2. CT scan of the head showed possibility of metastatic disease cannot be excluded. 3. A repeat head CT scan showed nonspecific edema in the parietal lobes. 4. MRI of the brain showed focal cortical and subcortical edema bilaterally involving the parietal lobe and to a lesser degree the occipital lobes in the pattern suggestive of posterior reversible encephalopathy syndrome. 5. Ultrasound of the abdomen essentially unremarkable. ADMISSION DIAGNOSES: 1. Acute pancreatitis. 2. Suspected alcohol withdrawal. 3. Seizure-like activity. 4. Uncontrolled hypertension. DIAGNOSIS AT THE TIME OF DISCHARGE: 1. Alcohol-induced acute pancreatitis. 2. Severe hypertension on admission. 3. Posterior reversible encephalopathy syndrome noted on MRI. 4. Alcohol use and abuse with suspicion of alcohol withdrawal seizures on admission. 5. Seizures on admission. 6. Macrocytosis due to alcohol. DISCHARGE MEDICATIONS: 1. Keppra 500 b.i.d. 2. Coreg 12.5 p.o. daily. 3. Thiamine 100 mg p.o. daily. PRESENTING COMPLAINT: Abdominal pain. HISTORY OF PRESENT COMPLAINT: Mr. Rosen is a 43-year-old gentleman who uses alcohol on a daily basis, came to the emergency room because of abdominal pain, nausea, and vomiting. He was evaluated. A CT scan did show an acute pancreatitis. Mr. Rosen was admitted for further medical care. HOSPITAL COURSE: In the ER, Mr. Rosen had 2 episodes of seizures and was admitted under seizure precaution as well as acute pancreatitis. During the hospital course, a decision was made to do a lumbar puncture, which was successfully done by Dr. Spencer. The fluid analysis was not convincing for any infectious disease. We thought it was probably slightly traumatic. The patient was seen by Infectious Disease and Dr. Syed thought that there was no need to cover for any TRANSITION OF CARE SPECIALIST infection. Mr. Rosen was also seen by Neurology because of the abnormal MRI results. An EEG was done which was unremarkable. However, Dr. Anna thought that it was reasonable to keep Mr. Rosen on antiseizure medications. Side effects and [place] code of seizures have been discussed with him. Mr. Rosen is also known to be hypertensive. However, he was not on any medications. At the time of his admission, his blood pressure was ridiculously high with systolic of 202/120. It went up to 227/148. He has been started on blood pressure medications and this morning he looks a lot better. Mr. Rosen's acute pancreatitis has resolved. Abdominal pain is resolved. We think this is related to alcohol use. Both CT scan and ultrasound did not show any gallbladder disease. He has been started on a regular diet and he has been tolerating it well. We think he is stable to be discharged. Mr. Rosen will follow up with Dr. Anna on the seizure management. All of the discharge instructions have been discussed with him and he voiced understanding. Time spent for discharge is 38 minutes. We have stressed the utmost importance for Mr. Rosen to embark on alcohol cessation. cc: Enrique Marsh MD [facility]
== END 2019-03-23 12:12 | disposition home or self-care (01) | DRG 438 ==
LOC: ED 18:21 → SUATTDRO 03-19 04:17 → 2N 03-19 04:17 → 3N 03-22 21:33
PROVIDERS: ATTEND Internal Medicine